=== PATIENT | male | born 1965 | race Caucasian/White ===

== ENCOUNTER 2021-08-16 20:59 | Emergency (ER) | payer MEDICARE ==
[2021-08-16] MEDS ORDERED: Adacel Vial IM ONE ×2 (23:08→23:32)
[2021-08-16] MEDS ORDERED: BACIGUENT PACKET ONE (23:23)
[2021-08-16] MEDS ORDERED: BACIGUENT PACKET TP ONE (23:35)
[2021-08-16 23:41] VITALS: BP 126/79; PULSE 60
[2021-08-16 23:42] VITALS: O2SAT 97
--- NOTE | 2021-08-16 23:42 | ERPHSYRPT ---
- History of Present Illness Time Seen by Provider: 08/16/21 23:37 Source: patient Exam Limitations: no limitations Patient Subjective Stated Complaint: PATIENT STATES THAT HE WAS OUT ON A BOAT CUTTING UP FISH BAIT WITH A HATCHET AND HE HIT HIS FINER WITH THE HATCHET. C/O LACERATION TO LEFT HAND SECOND FINGER. Triage Nursing Assessment: Patient ambulated back to ED without difficulties. He is alert and oriented and answering questions appropriately. Hand wrapped in a piece of wrapped up blue isra material that was saturated with bright red blood. Once clothing material was removed from the laceration, there was no active bleeding. The laceration is in a "v" shape and well approximated at this time. Capillary refill less than 3 seconds and patient CMS checks to finger are WNL. Physician History: pt cut finger with hatchet, bone feels intact, nontender and pt declines x-ray. . full tendon function flex ext prox and distal phal intact. neuro vasc intact. Timing/Duration: today Severity: mild Possible Causes: other (lac) Associated Symptoms: denies symptoms Allergies/Adverse Reactions: Influenza Virus Vaccines Allergy (Verified 08/16/21 22:31) morphine Allergy (Verified 08/16/21 22:04) Penicillins Allergy (Verified 08/16/21 22:04) Home Medications: Gabapentin [Neurontin ] 1 cap PO TID 08/16/21 [History] Hydrocodone/Acetaminophen [Hydrocodone-Acetamin 7.5-325] 1 tab PO Q6HPRN PRN 08/16/21 [History] Losartan Potassium [Cozaar] 1 tab PO DAILY 08/16/21 [History] Pantoprazole 20 mg [Protonix 20MG Tablet] 20 mg PO DAILY 08/16/21 [History] Tamsulosin HCl 0.4 mg [Flomax 0.4 MG] 0.4 mg PO DAILY 08/16/21 [History] allopurinoL [Allopurinol] 200 mg PO DAILY 08/16/21 [History] Hx Tetanus, Diphtheria Vaccination/Date Given: No (not tetanus) Hx Influenza Vaccination/Date Given: No (allergy) Hx Pneumococcal Vaccination/Date Given: No Immunizations Up to Date: Yes Travel Risk - International Travel Have you traveled outside of the country in past 3 weeks: No - Coronavirus Screening Are you exhibiting any of the following symptoms?: No Close contact with a COVID-19 positive Pt in past 14-21 Days: No - Vaccine Status Have you recieved a Covid-19 vaccination: Yes 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[employer] - Vaccination Dates Date of 2cond Vaccination (if applicable): 2020 - Review of Systems Constitutional: No Fever, No Chills Eyes: No Symptoms Ears, Nose, & Throat: No Symptoms Respiratory: No Cough, No Dyspnea Cardiac: No Chest Pain, No Edema, No Syncope Abdominal/Gastrointestinal: No Abdominal Pain, No Nausea, No Vomiting, No Diarrhea Genitourinary Symptoms: No Dysuria Musculoskeletal: No Back Pain, No Neck Pain Skin: Other (lac left index), No Rash Neurological: No Dizziness, No Focal Weakness, No Sensory Changes Psychological: No Symptoms Endocrine: No Symptoms All Other Systems: Reviewed and Negative - Past Medical History Pertinent Past Medical History: Yes Cardiac History: Hypertension GI Medical History: GERD Male Reproductive Disorders: Prostate Problems Other Medical History: GOUT, BPH, NERVE PAIN - Past Surgical History Past Surgical History: Yes Other Surgical History: BONE GRAFTS - Social History Smoking Status: Never smoker Exposure to second hand smoke: No Drug Use: none Patient Lives Alone: No - Nursing Vital Signs Nursing Vital Signs: Initial Vital Signs Temperature 98 F 08/16/21 22:05 Pulse Rate 63 08/16/21 22:05 Respiratory Rate 18 08/16/21 22:05 Blood Pressure 129/87 08/16/21 22:05 O2 Sat by Pulse Oximetry 97 08/16/21 22:05 Pain Scale Pain Intensity 0 - Physical Exam General Appearance: no apparent distress, alert Eye Exam: PERRL/EOMI, eyes nml inspection Ears, Nose, Throat Exam: normal ENT inspection, pharynx normal, moist mucous membranes Neck Exam: normal inspection, non-tender, supple, full range of motion Respiratory Exam: normal breath sounds, lungs clear, No respiratory distress Cardiovascular Exam: regular rate/rhythm, normal heart sounds Gastrointestinal/Abdomen Exam: soft, mass, No tenderness Rectal Exam: deferred Back Exam: normal inspection, normal range of motion, No CVA tenderness, No vertebral tenderness Extremity Exam: normal inspection, normal range of motion Neurologic Exam: alert, oriented x 3, cooperative, normal mood/affect, sensation nml, No motor deficits Skin Exam: normal color, warm, dry SpO2 Interpretation: normal SpO2: 97 O2 Delivery: Room Air - Course Nursing assessment & vital signs reviewed: Yes Ordered Tests: Medication Summary Discontinued Medications Generic Name Dose Route Start Last Admin Trade Name Curt PRN Reason Stop Dose Admin Bacitracin Zinc Confirm 08/16/21 23:23 Bacitracin Packet 1 Each Pckt Administered 08/16/21 23:24 Dose 1 each .ROUTE .STK-MED ONE Bacitracin Zinc 0.9 each 08/16/21 23:35 08/16/21 23:37 Bacitracin Packet 1 Each Pckt TP 08/16/21 23:36 0.9 each STAT ONE Administration Diphtheria/Tetanus/Acell Pertussis 0.5 ml 08/16/21 23:08 08/16/21 23:35 Tdap --Diph,Pertuss(Acell),Tet Vac/Pf 0.5 Ml Vial IM 08/16/21 23:09 0.5 ml .ONCE ONE Administration Diphtheria/Tetanus/Acell Pertussis Confirm 08/16/21 23:32 Tdap --Diph,Pertuss(Acell),Tet Vac/Pf 0.5 Ml Vial Administered 08/16/21 23:33 Dose 0.5 ml IM .STK-MED ONE - Progress Progress: improved, re-examined Counseled pt/family regarding: diagnosis, need for follow-up - Departure Departure Disposition: Home Clinical Impression: lac left index mid phal Condition: Good Critical Care Time: No Referrals: JOSEY SHAH FNP [Primary Care Provider] - Follow up/PCP as directed Instructions: Wound Care (DC), Laceration Repair With Stitches (DC) Additional Instructions: circular tan may be removed in 2 days at your DrRosie . then apply dressing and ointment tiwce a day and keep clean and dry. sutures may be removed by your DrRosie in 10-14 days. return meantime if any concerns. Prescriptions: Mupirocin [Bactroban OINTMENT] 22 gm TP BID #1 packet
== END 2021-08-16 23:49 | disposition home or self-care (01) ==
LOC: ED 20:59
DX: S61.211A Laceration without foreign body of left index finger without damage to nail, initial encounter (principal); W26.8XXA Contact with other sharp object(s), not elsewhere classified, initial encounter; Y92.814 Boat as the place of occurrence of the external cause; I10 Essential (primary) hypertension; Z79.891 Long term (current) use of opiate analgesic; Z79.899 Other long term (current) drug therapy
CPT/HCPCS: 90471; 90715; 99284; A9270-GY

== ENCOUNTER 2022-10-08 13:41 | Emergency (ER) | payer MEDICARE ==
[2022-10-08 13:51] VITALS: BP 100/62; PULSE 57; RESP 20; TEMP 97.2; O2SAT 97
[2022-10-08] MEDS ORDERED: XYLOCAINE 1% HCL 20 ML MDV ONE (13:53)
[2022-10-08] MEDS ORDERED: KEFLEX 500 MG PO ONE (14:13)
[2022-10-08] MEDS ORDERED: KEFLEX 500 MG ONE (14:18)
--- NOTE | 2022-10-08 14:19 | ERPHSYRPT ---
- History of Present Illness Time Seen by Provider: 10/08/22 13:51 Source: patient Exam Limitations: no limitations Patient Subjective Stated Complaint: Pt states "I was mowing and I went to get something and a cord hit the back of my heel and cut me." Triage Nursing Assessment: PT presented alert and oriented X 3, skin pwd. Pt ambulates with an upright steady gait, able to speak in clear full sentences. PT has an evulsion noted to posterior right heel. Physician History: 57 years old male presented in the ER after he accidentally dropped a battery with the card on right posterior foot/Achilles area while mowing lawn prior to arrival with a laceration just above the insertion of Achilles area. There was bleeding initially but stopped with applying pressure. Patient is complaining of mild to moderate dull aching pain. Able to ambulate without any limitation. Up-to-date with tetanus. No injury anywhere else. Timing/Duration: today, sudden Quality: painful Severity: moderate Location: feet Possible Causes: other Associated Symptoms: denies symptoms Allergies/Adverse Reactions: Influenza Virus Vaccines Allergy (Verified 08/16/21 22:31) morphine Allergy (Verified 08/16/21 22:04) Penicillins Allergy (Verified 08/16/21 22:04) Home Medications: Gabapentin [Neurontin ] 1 cap PO TID 08/16/21 [History] Losartan Potassium [Cozaar] 1 tab PO DAILY 08/16/21 [History] Pantoprazole 20 mg [Protonix 20MG Tablet] 20 mg PO DAILY 08/16/21 [History] Tamsulosin HCl 0.4 mg [Flomax 0.4 MG] 0.4 mg PO DAILY 08/16/21 [History] allopurinoL [Allopurinol] 200 mg PO DAILY 08/16/21 [History] Hx Tetanus, Diphtheria Vaccination/Date Given: Yes Hx Influenza Vaccination/Date Given: No (allergy) Hx Pneumococcal Vaccination/Date Given: No Immunizations Up to Date: Yes Travel Risk - International Travel Have you traveled outside of the country in past 3 weeks: No - Coronavirus Screening Are you exhibiting any of the following symptoms?: No Close contact with a COVID-19 positive Pt in past 14-21 Days: No - Vaccine Status Have you recieved a Covid-19 vaccination: Yes 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[employer] - Vaccination Dates Date of 2cond Vaccination (if applicable): 2020 - Review of Systems Constitutional: No Symptoms Ears, Nose, & Throat: No Symptoms Respiratory: No Symptoms Cardiac: No Symptoms Musculoskeletal: Injury Neurological: No Symptoms Psychological: No Symptoms Endocrine: No Symptoms - Past Medical History Pertinent Past Medical History: Yes Cardiac History: Hypertension GI Medical History: GERD Male Reproductive Disorders: Prostate Problems Other Medical History: GOUT, BPH, NERVE PAIN - Past Surgical History Past Surgical History: Yes Other Surgical History: BONE GRAFTS - Social History Smoking Status: Never smoker Exposure to second hand smoke: No Drug Use: none Patient Lives Alone: No - Nursing Vital Signs Nursing Vital Signs: Initial Vital Signs Temperature 97.2 F 10/08/22 13:46 Pulse Rate 57 L 10/08/22 13:46 Respiratory Rate 20 10/08/22 13:46 Blood Pressure 100/62 10/08/22 13:46 O2 Sat by Pulse Oximetry 97 10/08/22 13:46 Pain Scale Pain Intensity 2 - Physical Exam General Appearance: no apparent distress, alert Eye Exam: PERRL/EOMI Neck Exam: normal inspection, full range of motion Respiratory Exam: normal breath sounds, lungs clear Cardiovascular Exam: regular rate/rhythm, normal heart sounds Extremity Exam: normal range of motion, lacerations (3.5 cm inverted V shaped flap laceration just above Achilles insertion, superficial, not deep to at least tendon. Minimal oozing. Minimal tenderness of faculties. Intact actively standing. No calcaneus tenderness.) Neurologic Exam: alert, oriented x 3, cooperative Skin Exam: normal color SpO2 Interpretation: normal SpO2: 97 O2 Delivery: Room Air Procedures - Laceration/Wound Repair Right Foot Time of Procedure: 14:00 Wound Location: Right Wound Length (cm): 3.5 Wound's Depth, Shape: superficial, flap Wound Explored: contaminated Irrigated: Yes Hibiclens Prep: Yes Anesthesia: 1% Lidocaine Volume Anesthetic (ccs): 5 Wound Debrided: minimal Wound Repaired With: sutures (3 mattress sutures and 2 interrupted) Suture Size/Type: 3-0, prolene Number of Sutures: 5 Sterile Dressing Applied?: Yes Splint Applied?: Yes Type of Splint Applied: Ortho-Glass posterior splint applied by RN with intact distal neurovascular on reevaluation. Sling Applied?: No Progress: 10/08/22 14:18 Alterative procedure very well Ordered Tests: Medication Summary Discontinued Medications Generic Name Dose Route Start Last Admin Trade Name Curt PRN Reason Stop Dose Admin Cephalexin HCl 500 mg 10/08/22 14:13 10/08/22 14:19 Cephalexin Mh500 Mg Capsule PO 10/08/22 14:14 500 mg STAT ONE Administration Cephalexin HCl Confirm 10/08/22 14:18 Cephalexin Mh500 Mg Capsule Administered 10/08/22 14:19 Dose 500 mg .ROUTE .STK-MED ONE Lidocaine HCl Confirm 10/08/22 13:53 Lidocaine Hcl 1% 20 Ml Mdv 20 Ml Ml Administered 10/08/22 13:54 Dose 1 ml .ROUTE .STK-MED ONE - Progress Progress: improved Progress Note: 10/08/22 14:19 57 years old is evaluated for laceration just above the Achilles insertion area superficial flap. Patient encountered this when battery/battery of the lawnmower fell on it accidentally and got cut. There was bleeding initially but stopped with applying pressure. Does not have any difficulty movements of the ankle and walking fine. No foot/heel pain. Up-to-date with tetanus. It is a superficial flap laceration. Intact range of motion at the ankle. Not deep to Achilles. Thoroughly cleaned. Laceration repaired. Do not think needs imaging. Placed in a posterior splint and outpatient follow-up recommended. Also will start on Keflex as it was not a clean wound. Discussed signs symptoms of worsening needing return to ER which he seems understanding. Stable for discharge. 10/08/22 14:22 Counseled pt/family regarding: diagnosis, need for follow-up Medical Desision Making - Risk of complications The pt has a mod risk of morbidity or mortality based on: Need for prescription drug management - Departure Departure Disposition: Home Clinical Impression: Foot laceration Condition: Stable Critical Care Time: No Referrals: JOSEY SHAH FNP [Primary Care Provider] - Follow Up with PCP/3 days Instructions: Laceration Repair With Stitches (DC) Additional Instructions: Nonweightbearing, Tylenol/ibuprofen as needed. Intermittent ice application. Follow-up with primary care for reevaluation. Return to ER for increasing pain swelling redness discharge/fever chills etc. Prescriptions: Ibuprofen 600 mg PO Q6HPRN PRN 10 Days #20 tablet PRN Reason: Pain Cephalexin Mh 500 mg [Keflex 500 mg] 500 mg PO TID 5 Days #15 cap
== END 2022-10-08 14:34 | disposition home or self-care (01) ==
LOC: ED 13:41
DX: S91.311A Laceration without foreign body, right foot, initial encounter (principal); W20.8XXA Other cause of strike by thrown, projected or falling object, initial encounter; Y93.H2 Activity, gardening and landscaping; I10 Essential (primary) hypertension
CPT/HCPCS: 12002; 29515; 99281; A9270-GY

== ENCOUNTER 2023-09-07 14:14 | Emergency (ER) | payer MEDICARE ==
[2023-09-07 15:41] VITALS: BP 100/67; PULSE 69; TEMP 95.6; O2SAT 97
--- NOTE | 2023-09-07 15:56 | ERPHSYRPT ---
- History of Present Illness Time Seen by Provider: 09/07/23 15:46 Source: patient Exam Limitations: no limitations Patient Subjective Stated Complaint: pt hit his middle finger on the right hand on a fan blade and has cut his fingernail almost all the way off Triage Nursing Assessment: Pt brought to the ER by his friend, rambo poppy, rates pain as 2/10, pulses normal, skin n/w/d, right hand middle fingernail has been cut and is barely attached, denies any other injuries Physician History: Pt states about 90 minutes ago at home a fan blade lacerated his right middle finger; last tetanus is within 5 years. Pt does not want any pain medication. Allergies/Adverse Reactions: Influenza Virus Vaccines Allergy (Verified 09/07/23 15:41) morphine Allergy (Verified 09/07/23 15:41) Penicillins Allergy (Verified 09/07/23 15:41) Home Medications: Gabapentin [Neurontin ] 300 mg PO TID 08/16/21 [History] Losartan Potassium [Cozaar] 1 tab PO DAILY 08/16/21 [History] Pantoprazole 20 mg [Protonix 20MG Tablet] 20 mg PO DAILY 08/16/21 [History] Tamsulosin HCl 0.4 mg [Flomax 0.4 MG] 0.4 mg PO DAILY 08/16/21 [History] allopurinoL [Allopurinol] 200 mg PO DAILY 08/16/21 [History] Tramadol HCl [Tramadol HCl ER] 200 mg PO DAILY 09/07/23 [History] Hx Tetanus, Diphtheria Vaccination/Date Given: Yes (within the last year) Hx Influenza Vaccination/Date Given: No (allergy) Hx Pneumococcal Vaccination/Date Given: No Travel Risk - International Travel Have you traveled outside of the country in past 3 weeks: No - Emerging Infectious Disease Are you exhibiting symptoms associated with any current EIDs: No - Review of Systems Musculoskeletal: Injury (right middle finger laceration today) - Past Medical History Pertinent Past Medical History: Yes Cardiac History: Hypertension GI Medical History: GERD Male Reproductive Disorders: Prostate Problems Other Medical History: GOUT, BPH, NERVE PAIN - Past Surgical History Past Surgical History: Yes Other Surgical History: BONE GRAFTS - Social History Smoking Status: Never smoker Exposure to second hand smoke: No Drug Use: none Patient Lives Alone: No - Social Determinants of Health Will the patient participate in the screening: Yes Do you worry about a steady place to live?: No Do you have any problems with any of the following?: No known problems In the past 12 months,have you had to go without utilities?: No Transportation Issues: No Has anyone in your support network made you feel unsafe?: No Have you or anyone in your house had to go without enough: No - Nursing Vital Signs Nursing Vital Signs: Initial Vital Signs Temperature 95.6 F 09/07/23 15:34 Pulse Rate 69 09/07/23 15:34 Blood Pressure 100/67 09/07/23 15:34 O2 Sat by Pulse Oximetry 97 09/07/23 15:34 Pain Scale Pain Intensity 2 - Physical Exam General Appearance: alert Shoulder Exam: normal ROM Elbow/Forearm Exam: normal ROM Wrist Exam: normal ROM Hand Exam: nail injury (2 cm laceration over proximal aspect of right middle f ingernail extending to pad; sensation intact.) Neuro/Tendon Exam: normal sensation Mental Status Exam: alert, cooperative Skin Exam: No cyanosis SpO2 Interpretation: normal SpO2: 97 O2 Delivery: Room Air Procedures - Laceration/Wound Repair Right Finger Time of Procedure: 17:40 Wound Location: Right Wound Length (cm): 2 Wound's Depth, Shape: superficial Wound Explored: clean Irrigated: Yes Hibiclens Prep: Yes Anesthesia: 1% Lidocaine Volume Anesthetic (ccs): 3 Wound Repaired With: sutures Suture Size/Type: 4-0, prolene Layer Closure?: No - Course Nursing assessment & vital signs reviewed: Yes - Radiology Exams Right Other X-ray Interpretation: Discussed w/ radiologist (Tiny comminuted tuft fracture of right middle finger.) Ordered Tests: Active Orders 24 hr Category Date Time Status Prepare for Sutures STAT Care 09/07/23 17:05 Active Sutures STAT Care 09/07/23 17:07 Active Wound Care STAT Care 09/07/23 17:05 Active FINGER(S) Stat Exams 09/07/23 16:10 Completed Medication Summary Discontinued Medications Generic Name Dose Route Start Last Admin Trade Name Freq PRN Reason Stop Dose Admin Clindamycin HCl 300 mg 09/07/23 16:11 09/07/23 16:23 Clindamycin Hcl 150 Mg Capsule PO 09/07/23 16:12 300 mg STAT ONE Administration Clindamycin HCl Confirm 09/07/23 16:20 Clindamycin Hcl 150 Mg Capsule Administered 09/07/23 16:21 Dose 300 mg .ROUTE .STK-MED ONE Clindamycin HCl 300 mg 09/07/23 17:46 09/07/23 17:58 Clindamycin Hcl 150 Mg Capsule PO 09/07/23 17:47 300 mg STAT ONE Administration Clindamycin HCl 300 mg 09/07/23 17:48 09/07/23 17:58 Clindamycin Hcl 150 Mg Capsule PO 09/07/23 17:49 300 mg STAT ONE Administration Clindamycin HCl Confirm 09/07/23 17:53 Clindamycin Hcl 150 Mg Capsule Administered 09/07/23 17:54 Dose 600 mg .ROUTE .STK-MED ONE Lidocaine HCl 5 ml 09/07/23 17:05 09/07/23 17:59 Lidocaine Hcl 1% 20 Ml Mdv 20 Ml Ml IJ 09/07/23 17:06 5 ml STAT ONE Administration Lidocaine HCl Confirm 09/07/23 17:28 Lidocaine Hcl 1% 20 Ml Mdv 20 Ml Ml Administered 09/07/23 17:29 Dose 5 ml .ROUTE .STK-MED ONE - Progress Progress: improved Will see patient in: other (Spoke with Dr. Valdez([facility])([id number]) who instructed me to put a few sutures in the pad and he will see pt in his office at 1:00 PM tomorrow at [facility] for repair.) Medical Desision Making - Diagnostic Testing Diagnostic test were ordered, analyzed, and reviewed by me: Yes Radiological Interpretation: Discussed w/ radiologist - Departure Departure Disposition: Home Clinical Impression: Open fracture of right middle finger Condition: Stable Critical Care Time: No Referrals: JOSEY SHAH FNP [Primary Care Provider] - Follow up/PCP as directed Instructions: Wound Care (DC), Laceration Repair With Stitches (DC) Additional Instructions: Follow up with Dr. Valdez tomorrow at [facility] Ortho office at 1:00 PM. Keep right middle finger clean & dry with dressing on until Dr. Valdez is seen tomorrow. Take clindamycin 300mg tonight at 11 PM and at 5 AM in the morning. Prescriptions: clindamycin HCL [Clindamycin HCl] 300 mg PO Q6H #40 cap
[2023-09-07] MEDS ORDERED: CLEOCIN 150 MG CAPSULE ONE ×2 (16:20→17:53)
[2023-09-07] MEDS: CLEOCIN 150 MG CAPSULE PO ONE ×3 (16:23→17:58)
--- NOTE | 2023-09-07 16:53 | XRAY ---
Indication: Laceration following injury. Comparison: None 3 view right 3rd finger demonstrates tiny comminuted tuft fracture. No other bony, articular, or soft tissue abnormalities.
[2023-09-07] MEDS ORDERED: XYLOCAINE 1% HCL 20 ML MDV ONE (17:28)
[2023-09-07] MEDS: XYLOCAINE 1% HCL 20 ML MDV IJ ONE (17:59)
== END 2023-09-07 18:11 | disposition home or self-care (01) ==
LOC: ED 14:14
DX: S62.632B Displaced fracture of distal phalanx of right middle finger, initial encounter for open fracture (principal); S61.312A Laceration without foreign body of right middle finger with damage to nail, initial encounter; W45.8XXA Other foreign body or object entering through skin, initial encounter; I10 Essential (primary) hypertension; Z79.891 Long term (current) use of opiate analgesic; Z79.899 Other long term (current) drug therapy
CPT/HCPCS: 12001; 73140; 96372; 99283; A9270-GY

== ENCOUNTER 2023-09-09 08:37 | Day surgery (SDC) | payer MEDICARE ==
[2023-09-09 09:18] VITALS: RESP 18
[2023-09-09] MEDS ORDERED: XYLOCAINE 1% HCL 20 ML MDV ONE ×2 (09:33)
[2023-09-09] MEDS ORDERED: Triple Antibiotic Ointment ONE (11:56)
[2023-09-09 12:14] VITALS: BP 119/76; PULSE 52; TEMP 97.6; O2SAT 98
--- NOTE | 2023-09-11 10:43 | OP ---
SURGERY DATE/TIME: 09/09/2023 PREOPERATIVE DIAGNOSIS: Nail bed laceration, right long finger. POSTOPERATIVE DIAGNOSIS: Nail bed laceration, right long finger. PROCEDURE: Nail bed repair, right long finger. SURGEON: Naeem Montez MD INDICATIONS: This patient injured his finger on 09/06 when a motorized fan hit the tip of his finger. He was seen at the emergency room here at [facility]. He had some sutures placed in the ulnar and radial side of the fingertip and the finger was then wrapped up, and he was seen in the ortho clinic the following morning, which was yesterday. Yesterday, he was seen by Dr. Bailey who noted that the fingernail plate and nail matrix were avulsed proximally and flipped downward into a flexed position. He recommended repair and it was scheduled today. I evaluated the patient and concurred. Consent was obtained after discussion of the procedure risk and benefit. DESCRIPTION OF PROCEDURE AND FINDINGS: Patient was taken into the operating room and his bandages were removed. We prepped the base of the finger with Betadine and then injected 8 mL of 1% Xylocaine in the palmar and dorsal sides of the finger to create a nerve block. Once this was done, we performed a formal prep of the finger and then wrapped the finger with a [place], clamping off the [place] at the PIP joint, creating a tourniquet effect. We then examined the finger. There were sutures placed on the ulnar and radial borders of the finger. The fingernail plate was in a flexed position and this had pried the nail plate and matrix up from the proximal end. I used a [place]wl to free up the nail matrix from the nail plate. The nail plate was removed, trimmed, and placed in a Betadine soak. We then examined the nail matrix which was still attached on the radial side but avulsed from the lunula proximally and most of the ulnar side. The only 6-0 suture available for repair was Prolene. We performed the repair by placing four Prolene sutures through the lunula and out through the matrix and sewed these down in simple fashion. One extra suture was placed through the skin on the ulnar side of the repair. We then applied a thick coating of Polysporin ointment and then applied the nail plate back over the repair. This was then covered with Adaptic, gauze, and a wrap. We did irrigate the wound copiously with normal saline solution before and during the repair. A splint was applied to protect the repair, and the patient was taken to the recovery room.
== END 2023-09-09 12:26 | disposition home or self-care (01) ==
LOC: SDC 08:37
PROVIDERS: ATTEND Orthopaedic Surgery
DX: S61.312A Laceration without foreign body of right middle finger with damage to nail, initial encounter (principal)
CPT/HCPCS: A9270-GY